=== PATIENT | female | born 1955 ===

== ENCOUNTER 2020-04-05 20:27 | Observation (INO) | payer BC, MEDICARE, SELFPAY ==
[2020-04-05 21:06] VITALS: BMI 35.9
--- NOTE | 2020-04-05 22:37 | XR_ITS ---
WS: [id number] Portable AP upright chest, 04/05/2020 Clinical Data: Chest pain Comparison: PA and lateral chest, 12/03/2017. Findings: No nodules, masses or effusions are seen. The heart is normal. The pulmonary vascularity is not increased. No pneumonia or pneumothorax is seen. The aortic arch is minimally tortuous. XR/XR chest 1V portable [id number] Impression: Atherosclerosis.
--- NOTE | 2020-04-05 22:37 | ECG_ITS ---
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 Measurements Intervals [place] Rate: 79 P: 35 HI: 174 QRS: 5 QRSD: 90 T: 5 QT: 350 QTc: 403 Interpretive Statements SINUS RHYTHM LOW QRS VOLTAGE IN PRECORDIAL LEADS [QRS DEFLECTION < 1.0 mV IN CHEST LEADS] POSSIBLE ANTERIOR MYOCARDIAL INFARCTION , PROBABLY OLD [30 ms Q WAVE IN V3/V4, OR R < 0.2 mV IN V4] Compared to ECG 06/11/2016 08:09:33 Low QRS voltage now present Myocardial infarct finding now present Sinus tachycardia no longer present Poor R-wave progression no longer present Electronically Signed On 04-06-2020 1:23:48 CDT by Jonas Pina M.D. [id number]
[2020-04-05] MEDS: aspirin 325 mg Tablet PO (23:08)
[2020-04-05] MEDS: nitroglycerin 0.4 mg sublingual Tablet SUBLINGUAL (23:16)
[2020-04-05 23:19] VITALS: BP 171/111; PULSE 90; RESP 20; O2SAT 98
--- NOTE | 2020-04-05 23:19 | W.ED.GENADLT ---
HPI - General Adult General: Chief complaint: General Medical Stated complaint: high bp Time Seen by Provider: 04/05/20 22:32 Source: patient Mode of arrival: ambulatory Limitations: no limitations History of Present Illness: HPI narrative: Tracey is a nice 64-year-old female who comes in complaining of chest pain. She states the pain started after she got out of the shower. She had associated shortness of breath. She denies any nausea vomiting or diaphoresis. The pain went across her chest, across both her shoulders and down her arms and was in between her shoulder blades. Patient states the pain is gradually subsiding but is still not completely gone. She denies any coronary artery disease history but does state that she has a history of high blood pressure. She denies any other complaints or concerns. Associated symptoms: Reports chest pain; Deny dyspnea, headache(s), nausea, rash, palpitations, syncope or vomiting Review of Systems Const: Denies: fever(s) Eyes: Denies: change in vision ENMT: Denies: throat pain Card: Reports: chest pain; Denies: palpitations, syncope, pre-syncope or dyspnea on exertion Resp: Denies: dyspnea, productive cough or non-productive cough GI: Denies: abdominal pain, nausea, vomiting or diarrhea : Denies: flank pain, dysuria, urinary frequency or urinary urgency Musc: Denies: neck pain, back pain or extremity pain Skin/Breast: Denies: rash or pruritus Neuro: Denies: headache(s), numbness in extremities, weakness in extremities or dizziness Shine/Lymph: Denies: easy bruising or easy bleeding All/Imm: Denies: urticaria PFSH ED PFSH: Medical History (Updated 04/06/20 @ 01:57 by Ai Crow) Hypertension Surgical History (Updated 04/05/20 @ 23:21 by Ai Crow) No pertinent past surgical history Family History (Updated 04/06/20 @ 01:55 by Ai Crow) Other CAD (coronary artery disease) Social History (Updated 04/05/20 @ 23:21 by Ai Crow) Smoking and tobacco status: current every day smoker Physical Exam Const: COMMON NORMALS: no acute distress, patient oriented x3, no limitations, healthy appearing and well nourished GENERAL APPEARANCE: cooperative, well kempt and well developed HENMT: COMMON NORMALS: normocephalic, atraumatic, external ears normal, EAC's normal and Normal external nose present HEAD & SCALP: normal to inspection, normocephalic and atraumatic FACE & SINUS: normal facial exam and face symmetric NOSE: Normal external nose present and Normal nares present EXTERNAL EAR: Yes external ears normal EXTERNAL AUDITORY CANAL: EAC's normal MOUTH: Normal oral and palatal mucosa present, lip normal and tongue normal Eye: COMMON NORMALS: Equal, round and reactive pupils present and conjunctivae normal GENERAL EYE: appearance normal, both eyes and all related structures ALIGNMENT: Yes alignment normal PERIORBITAL: periorbital findings normal EYELID: eyelids normal CONJUNCTIVA: Yes conjunctivae normal SCLERA: sclerae normal PUPIL: Yes Equal, round and reactive pupils present Neck/C-Spine: COMMON NORMALS: full ROM, no lymphadenopathy, supple, no meningeal signs and no JVD GENERAL: Yes normal visual inspection and Yes trachea midline Chest: COMMONS NORMALS: normal inspection of the chest and normal palpation of entire chest wall Resp: COMMON NORMALS: normal respiratory effort, No retractions and No use of accessory muscles EFFORT & INSPECTION: Yes able to speak in complete sentences and Yes symmetric chest movement AUSCULTATION: no crackles, no rales, no rhonchi and no wheezes Cardio: COMMON NORMALS: no JVD, regular rate, regular rhythm, S1 normal heart sound present and S2 normal heart sound present RATE: regular rate RHYTHM: regular rhythm HEART SOUNDS: S1 normal heart sound present, S2 normal heart sound present, no click, no gallops, no murmurs, no rubs and abnormal split S2 GI: COMMON NORMALS: Soft to palpation and No hepatosplenomegaly present PALPATION: Yes Soft to palpation, No Tenderness to palpation present (GI), No Guarding due to palpation present (GI), No Rigid due to palpation, Yes No hepatosplenomegaly present, No Hernia present, No Palpable mass present and No Pulsatile mass present : COMMON NORMALS: Yes no CVA tenderness BLADDER/KIDNEY EXAM: Yes no CVA tenderness EXTERNAL FEMALE EXAM: No Hernia present Back/Pelvis: COMMON NORMALS: no CVA tenderness, thoracic and lumbar spine normal to inspection, no thoracic nor lumbar tenderness and thoraco-lumbar ROM normal Extremity: COMMON NORMALS: normal to inspection, full ROM, capillary refill normal, no joint enlargement, no clubbing, cyanosis or edema and no calf tenderness Neuro: COMMON NORMALS: patient oriented x3, CN's II-XII intact bilaterally, moves all extremities, no focal motor deficits and no sensory deficits noted MENINGEAL SIGNS: Yes no meningeal signs SPEECH: speech normal Psych: COMMON NORMALS: mental status grossly normal, Normal thought process present, cooperative, normal affect, speech normal and activity/motor behavior normal APPEARANCE: Yes well kempt SPEECH: Yes normal speech THOUGHT PROCESS: Normal thought process present Skin: COMMON NORMALS: no rashes or lesions noted, turgor normal, no jaundice, no petechiae and no mottling GENERAL SKIN EXAM: no rashes or lesions noted and turgor normal Course Vital Signs: Vital signs: Vital Signs Temperature 97.9 F 04/06/20 02:47 Pulse Rate 84 04/06/20 02:47 Respiratory Rate 14 04/06/20 02:47 Blood Pressure 133/75 04/06/20 02:47 Pulse Oximetry 95 04/06/20 02:47 MDM - General Adult MDM Narrative: Medical decision making narrative: Case was reviewed with both Drs. Bolaños and Yovani, they agreed to admit and consult respectively. Patient has no chest pain after 1 sublingual nitroglycerin. She was given an inch of nitroglycerin paste and per Dr. Pina's direction a dose of Plavix and Lovenox. Patient agrees to stay and will be evaluated further. Dr. Pina is ordered an echo for the morning. I see no sign of aortic dissection or pulmonary embolism or acute pulmonary pathology at this time. Lab Data: Attestation: I reviewed the patient's lab results. Labs: Lab Results 04/05/20 04/06/20 04/06/20 Range/Units 21:00 00:35 00:35 WBC 8.2 (4.0-10.0) 10^3/ uL RBC 5.08 (4.1-5.3) 10^6/u L Hgb 14.5 (11.5-15.3) g/dL Hct 45.8 (37.0-47.0) % MCV 90.2 (81-99) fL MCH 28.5 (28.0-34.0) pg MCHC 31.7 (30.0-36.0) g/dL RDW 14.0 (12.1-15.1) % Plt Count 197 (130-400) 10^3/c mm MPV 10.7 H (7.4-10.4) fL Neut % (Auto) 62.4 % Lymph % (Auto) 30.0 % [place] % (Auto) 5.9 % Eos % (Auto) 0.9 % Baso % (Auto) 0.6 % Neut # (Auto) 5.12 (1.8-7.7) 10^3/u L Lymph # (Auto) 2.5 (0.8-4.8) 10^3/u L [place] # (Auto) 0.5 (0.2-0.9) 10^3/u L Eos # (Auto) 0.1 (0.0-0.8) 10^3/u L Baso # (Auto) 0.1 (0.0-0.1) 10^3/u L Nucleated RBC % (a uto) 0 % Nucleated RBCs # 0.0 /100WBC PT 12.40 (10.5-13.3) SECO NDS INR 0.90 (0.8-1.2) Sodium (136-145) mmol/L Potassium (3.5-5.1) mmol/L Chloride (98-107) mmol/L Carbon Dioxide (22-29) mmol/L Anion Gap (5-19) BUN (8-23) mg/dL Creatinine (0.5-0.9) mg/dL GFR Calculation (90-130) mL/min Glucose (65-115) mg/dL Calculated Osmolal ity (285-295) mOsm/k g Calcium (8.5-10.5) mg/dL Magnesium (1.7-2.3) mg/dL Total Bilirubin (0.15-1.2) mg/dL AST (0-32) U/L ALT (0-33) U/L Alkaline Phosphata se (35-105) IU/L Troponin T Baselin e (0-10) ng/L Total Protein (6.6-8.7) g/dL Albumin (3.5-5.2) g/dL Globulin (1.3-4.6) g/dL Lipase (13-60) U/L Urine Color Yellow (Yellow) Urine Appearance Clear (CLEAR) Urine pH 5 (5-7) Ur Specific Gravit y 1.005 (1.005-1.030) Urine Protein Neg (Negative) Urine Glucose (UA) Norm (Normal) Urine Ketones Negative (Negative) Urine Blood Neg (Negative) Urine Nitrate Negative (Negative) Urine Bilirubin Neg (NEGATIVE) Urine Urobilinogen Norm (Negative) mg/dL Ur Leukocyte Willa ase Negative (Negative) Urine RBC Rare (0-2) /hpf Urine WBC 0-4 H (0-5) /hpf Ur Squamous Epith Cells Rare (0-5) Urine Bacteria Trace (NONE) 04/06/20 04/06/20 Range/Units 00:35 00:35 WBC (4.0-10.0) 10^3/ uL RBC (4.1-5.3) 10^6/u L Hgb (11.5-15.3) g/dL Hct (37.0-47.0) % MCV (81-99) fL MCH (28.0-34.0) pg MCHC (30.0-36.0) g/dL RDW (12.1-15.1) % Plt Count (130-400) 10^3/c mm MPV (7.4-10.4) fL Neut % (Auto) % Lymph % (Auto) % [place] % (Auto) % Eos % (Auto) % Baso % (Auto) % Neut # (Auto) (1.8-7.7) 10^3/u L Lymph # (Auto) (0.8-4.8) 10^3/u L [place] # (Auto) (0.2-0.9) 10^3/u L Eos # (Auto) (0.0-0.8) 10^3/u L Baso # (Auto) (0.0-0.1) 10^3/u L Nucleated RBC % (a uto) % Nucleated RBCs # /100WBC PT (10.5-13.3) SECO NDS INR (0.8-1.2) Sodium 140 (136-145) mmol/L Potassium 4.1 (3.5-5.1) mmol/L Chloride 104 (98-107) mmol/L Carbon Dioxide 24 (22-29) mmol/L Anion Gap 16.1 (5-19) BUN 12 (8-23) mg/dL Creatinine 0.8 (0.5-0.9) mg/dL GFR Calculation 71.8 L (90-130) mL/min Glucose 122 H (65-115) mg/dL Calculated Osmolal ity 287 (285-295) mOsm/k g Calcium 9.0 (8.5-10.5) mg/dL Magnesium 2.0 (1.7-2.3) mg/dL Total Bilirubin 0.3 (0.15-1.2) mg/dL AST 30 (0-32) U/L ALT 34 H (0-33) U/L Alkaline Phosphata se 69 (35-105) IU/L Troponin T Baselin e 175 H* (0-10) ng/L Total Protein 7.1 (6.6-8.7) g/dL Albumin 4.3 (3.5-5.2) g/dL Globulin 2.8 (1.3-4.6) g/dL Lipase 34 (13-60) U/L Urine Color (Yellow) Urine Appearance (CLEAR) Urine pH (5-7) Ur Specific Gravit y (1.005-1.030) Urine Protein (Negative) Urine Glucose (UA) (Normal) Urine Ketones (Negative) Urine Blood (Negative) Urine Nitrate (Negative) Urine Bilirubin (NEGATIVE) Urine Urobilinogen (Negative) mg/dL Ur Leukocyte Willa ase (Negative) Urine RBC (0-2) /hpf Urine WBC (0-5) /hpf Ur Squamous Epith Cells (0-5) Urine Bacteria (NONE) Imaging Data^: CXR: My impression: No acute cardiopulmonary findings. EKG Data^: EKG 1: Attestation: I personally reviewed and interpreted this EKG as follows: EKG interpretation date: 04/05/20 EKG interpretation time: 23:19 Interpretation: Normal sinus rhythm at 88 beats a minute, no acute ST or T wave changes, frequent PACs, EKG 2: Attestation: I personally reviewed and interpreted this EKG as follows: EKG interpretation date: 04/06/20 EKG interpretation time: 01:22 Interpretation: Normal sinus rhythm at 86 beats a minute, nonspecific ST-T wave changes. No acute findings. 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
[2020-04-05] MEDS: nitroglycerin 1 gm/inch oint Pkt 1 INCH TOPICAL (23:33)
[2020-04-06] VITALS (24 sets, daily range): BP systolic 108–140; BP diastolic 75–100; PULSE 76–108; RESP 14–22; TEMP 36.6–36.9; O2SAT 91–98
[2020-04-06 00:06] LABS: Bacteria Urine TRACE; Bilirubin Urine Neg (NEGATIVE); Blood Urine Neg (Negative); Glucose Urine UA Norm (Normal); Ketones Urine Negative (Negative); Leukocyte Esterase Urine Negative (Negative); Nitrate Urine Negative (Negative); Protein Urine Neg (Negative); RBC Urine RARE /hpf (0-2); Specific Gravity, Urine 1.005 (1.005-1.030); Squamous Epithelial Cell Urine RARE (0-5); Urine Appearance Clear (CLEAR); Urine Color Yellow (Yellow); Urobilinogen Urine Norm (Negative); WBC Urine 0-4 /hpf (0-5); pH Urine 5 (5-7)
--- NOTE | 2020-04-06 00:37 | ECG_ITS ---
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 Measurements Intervals [place] Rate: 88 P: 20 SC: 163 QRS: -37 QRSD: 88 T: 8 QT: 420 QTc: 510 Interpretive Statements SINUS RHYTHM WITH FREQUENT SUPRAVENTRICULAR PREMATURE COMPLEXES LOW QRS VOLTAGE IN PRECORDIAL LEADS [QRS DEFLECTION < 1.0 mV IN CHEST LEADS] ANTERIOR MYOCARDIAL INFARCTION , OF INDETERMINATE AGE [40+ ms Q WAVE AND/OR ST/T ABNORMALITY IN V3/V4] INFERIOR MYOCARDIAL INFARCTION , PROBABLY OLD [40+ ms Q WAVE AND/OR ST/T ABNORMALITY IN II/aVF] Compared to ECG 04/05/2020 22:57:03 No significant changes Electronically Signed On 04-06-2020 23:44:14 CDT by Jonas Pina M.D. [email or web address].[email or web address]/[id number] f
[2020-04-06 00:43] LABS: Basophils # 0.1 10^3/uL (0.0-0.1); Basophils % 0.6 %; Eosinophils # 0.1 10^3/uL (0.0-0.8); Eosinophils % 0.9 %; Hematocrit 45.8 % (37.0-47.0); Hemoglobin 14.5 g/dL (11.5-15.3); Lymphocytes # 2.5 10^3/uL (0.8-4.8); Mean Corpuscular HGB Conc 31.7 g/dL (30.0-36.0); Mean Corpuscular Hemoglobin 28.5 pg (28.0-34.0); Mean Corpuscular Volume 90.2 fL (81-99); Mean Platelet Volume 10.7 fL (7.4-10.4); Monocytes # 0.5 10^3/uL (0.2-0.9); Monocytes % 5.9 %; Neutrophils # 5.12 10^3/uL (1.8-7.7); Neutrophils % 62.4 %; Nucleated Red Blood Cells % 0 %; Platelet Count 197 10^3/cmm (130-400); Red Blood Count 5.08 10^6/uL (4.1-5.3); White Blood Count 8.2 10^3/uL (4.0-10.0)
[2020-04-06 00:52] LABS: Alanine Aminotransferase 34 U/L (0-33); Albumin Level 4.3 g/dL (3.5-5.2); Alkaline Phosphatase 69 IU/L (35-105); Anion Gap 16.1 (5-19); Aspartate Amino Transferase 30 U/L (0-32); Blood Urea Nitrogen 12 mg/dL (8-23); Carbon Dioxide 24 mmol/L (22-29); Chloride 104 mmol/L (98-107); Globulin 2.8 g/dL (1.3-4.6); Glomerular Filtration Rate 71.8 mL/min (90-130); Glucose 122 mg/dL (65-115); Lipase 34 U/L (13-60); Osmolality Calculated 287 mOsm/kg (285-295); Potassium 4.1 mmol/L (3.5-5.1); Sodium 140 mmol/L (136-145); Total Bilirubin 0.3 mg/dL (0.15-1.2); Total Protein 7.1 g/dL (6.6-8.7)
[2020-04-06 01:01] LABS: Troponin(5th) Baseline 175 ng/L (0-10)
--- NOTE | 2020-04-06 01:04 | ECG_ITS ---
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 Measurements Intervals [place] Rate: 86 P: 10 [place]: 170 QRS: -29 QRSD: 64 T: 5 QT: 351 QTc: 421 Interpretive Statements SINUS RHYTHM WITH OCCASIONAL SUPRAVENTRICULAR PREMATURE COMPLEXES and short runs of PAT LOW QRS VOLTAGE IN PRECORDIAL LEADS [QRS DEFLECTION < 1.0 mV IN CHEST LEADS] INFERIOR MYOCARDIAL INFARCTION , PROBABLY OLD [40+ ms Q WAVE AND/OR ST/T ABNORMALITY IN II/aVF] ANTEROLATERAL MYOCARDIAL INFARCTION , OF INDETERMINATE AGE [40+ ms Q WAVE IN I/aVL/V3-V6] Compared to ECG 04/05/2020 23:19:30 No significant changes Electronically Signed On 04-06-2020 1:28:01 CDT by Jonas Pina M.D. [id number]
--- NOTE | 2020-04-06 01:20 | PC.NURSE ---
Patient declines Morphine stating she hates the idea of taking medications. aware
[2020-04-06] MEDS: clopidogrel 300 mg Tablet PO (01:46)
[2020-04-06] MEDS: enoxaparin 80 mg/0.8 mL Syringe 86 MG SUBCUT (01:47)
--- NOTE | 2020-04-06 03:00 | PC.NURSE ---
Pt arrived from ED via stretcher. VSS. No c/o pain. See admission assessment.
[2020-04-06 03:18] LABS: Troponin 5 2HR 195.3 ng/L (0-10)
[2020-04-06 03:19] LABS: Troponin 5 2HR Delta 20.3 ABS# (0-10)
[2020-04-06] MEDS: sodium chloride 0.9% 1,000 ML 100 ML IV ×2 (03:20→14:38)
--- NOTE | 2020-04-06 07:00 | USCV_ITS ---
Yoly Dubois Age: 64 Gender: F : 1955 Exam Date: 04/06/2020 05:28 Ordering Phys: Ai Crow DO Technologist: Tawny Dowd [place] [facility] [place]: [place] BP: / HR: 77 Rhythm: Sinus Technical Quality: MEASUREMENTS (Male / Female) Normal Values 2D ECHO LV Diastolic Diameter PLAX 3.9 cm 4.2 - 5.9 / 3.9 - 5.3 cm LV Systolic Diameter PLAX 3.1 cm LV Chamber Size 2.9 cm IVS Diastolic Thickness 1.0 cm 0.6 - 1.0 / 0.6 - 0.9 cm IVS Systolic Thickness 1.9 cm LVPW Diastolic Thickness 1.2 cm 0.6 - 1.0 / 0.6 - 0.9 cm LVPW Systolic Thickness 2.0 cm RV Chamber Size 2.0 cm LVOT Diameter 2.0 cm LV Ejection Fraction 2D Teich 41.7 % LV Ejection Fraction MOD 2C 56.3 % LV Ejection Fraction 2C AL 56.1 % LA Diameter 3.6 cm LA Width 2.5 cm LA Height 4.3 cm RA Width 2.0 cm RA Height 3.5 cm Aorta at Sinotubular Diameter 3.0 cm M-MODE LV Diastolic Diameter MM 3.9 cm 4.2 - 5.9 / 3.9 - 5.3 cm LV Systolic Diameter MM 2.1 cm LV Ejection Fraction MM Teich 79.1 % IVS Diastolic Thickness MM 1.0 cm 0.6 - 1.0 / 0.6 - 0.9 cm IVS Systolic Thickness MM 1.2 cm LVPW Diastolic Thickness MM 1.5 cm 0.6 - 1.0 / 0.6 - 0.9 cm LVPW Systolic Thickness MM 1.8 cm RV Diastolic Diameter MM 1.8 cm Aortic Annulus Diameter 3.1 cm LA Ao Ratio MM 1.2 MV E Point Septal Separation 0.6 cm DOPPLER AV Peak Velocity 172.0 cm/s LVOT Peak Velocity 96.0 cm/s AV Area Cont Eq vti 2.3 cm squared AV Area Cont Eq pk 1.8 cm squared MV Area PHT 4.6 cm squared MV E' Velocity 10.0 cm/s Mitral E to MV E' Ratio 8.1 Mitral E to LV E' Lateral Ratio 8.9 Mitral E to LV E' Septal Ratio 7.5 TR Peak Velocity 227.8 cm/s TR Peak Gradient 20.7 mmHg TR Mean Velocity 149.9 cm/s TR Mean Gradient 10.9 mmHg TR Velocity Time Integral 59.3 cm TV Peak E Velocity 70.0 cm/s Right Atrial Pressure 3.0 mmHg Pulmonary Artery Systolic Pressu 23.8 mmHg PV Peak Velocity 65.0 cm/s RV Acceleration Time 0.1 s RV Ejection Time 0.3 s RV AcT/ET 0.3 FINDINGS Left Ventricle Mild left ventricular hypertrophy. Diffuse hypokinesia of the LV apex. Ejection fraction around 45%.Grade I/IV diastolic dysfunction (abnormal relaxation filling pattern), normal to mildly elevated filling pressures. Right Ventricle The right ventricle is normal in size and function. Right Atrium The right atrium is normal in size. Left Atrium The left atrium is normal in size. Mitral Valve Thickened mitral valve. Mild-moderate mitral valve regurgitation. Aortic Valve Thickened aortic valve. Trace aortic valve regurgitation. Tricuspid Valve Trace to mild tricuspid valve regurgitation. Pulmonic Valve Pulmonic valve not well visualized. Pericardium Normal pericardium without effusion. Aorta Normal ascending aorta dimension. CONCLUSIONS Mild left ventricular hypertrophy. Diffuse hypokinesia of the LV apex. Ejection fraction around 45%.Grade I/IV diastolic dysfunction (abnormal relaxation filling pattern), normal to mildly elevated filling pressures. Thickened mitral valve. Mild-moderate mitral valve regurgitation. Thickened aortic valve. Trace aortic valve regurgitation. Trace to mild tricuspid valve regurgitation. Estimated pulmonary artery peak systolic pressure 24 mmHg There is no pericardial effusion. There are no intracardiac masses. Compared to the previous study from 06/10/2016, the LV dysfunction is new and the mitral regurgitation is more. Dr Jonas Pina MD FAC (Electronically Signed) Final Date: 06 April 2020 09:29 S
[2020-04-06 07:11] LABS: Basophils # 0.1 10^3/uL (0.0-0.1); Basophils % 0.8 %; Eosinophils # 0.1 10^3/uL (0.0-0.8); Eosinophils % 1.2 %; Hematocrit 42.6 % (37.0-47.0); Hemoglobin 13.4 g/dL (11.5-15.3); Lymphocytes # 2.8 10^3/uL (0.8-4.8); Mean Corpuscular HGB Conc 31.5 g/dL (30.0-36.0); Mean Corpuscular Hemoglobin 28.8 pg (28.0-34.0); Mean Corpuscular Volume 91.4 fL (81-99); Mean Platelet Volume 10.7 fL (7.4-10.4); Monocytes # 0.5 10^3/uL (0.2-0.9); Monocytes % 6.1 %; Neutrophils # 3.97 10^3/uL (1.8-7.7); Neutrophils % 53.8 %; Nucleated Red Blood Cells % 0 %; Platelet Count 179 10^3/cmm (130-400); Red Blood Count 4.66 10^6/uL (4.1-5.3); Red Cell Distribution Width 14.2 % (12.1-15.1); White Blood Count 7.4 10^3/uL (4.0-10.0)
[2020-04-06 07:33] LABS: Anion Gap 15.8 (5-19); Blood Urea Nitrogen 11 mg/dL (8-23); Calcium 8.5 mg/dL (8.5-10.5); Carbon Dioxide 23 mmol/L (22-29); Chloride 105 mmol/L (98-107); Glomerular Filtration Rate 83.7 mL/min (90-130); Glucose 101 mg/dL (65-115); Osmolality Calculated 286 mOsm/kg (285-295); Potassium 3.8 mmol/L (3.5-5.1); Sodium 140 mmol/L (136-145)
--- NOTE | 2020-04-06 07:36 | P.CONIM_ITS ---
Providers/Reason For Consult Consulting Physican/Specialty*: Josue Pina MD/cardiology Reason for Consult*: Patient with elevated troponin T and chest pain Attending Physician: Keon Bolaños MD Primary Care Provider: Keon Bolaños MD History of Present Illness History of Present Illness Yoly Dubois is a 64 year old female, is admitted to the hospital through the emergency room, where she present with complaints of a prolonged episode of chest pain. She was found to have elevated troponin T. Cardiology consult is requested for further cardiac evaluation recommendations. Patient apparently has been in her baseline state of health up until 7:00 last evening when she started having chest pain. She described as a dull aching/pressure-like pain, radiating across the chest, to both shoulders, down to both arms up to the elbows and to the jaws. She had some associated shortness of breath. No palpitation, dizziness or syncopal episode. No nausea or vomiting. No other associated symptoms or radiation of pain. Intensity of the pain was 7/10. She waited for an hour or so at home. Since there was no relief, she decided to come to the hospital. In the emergency room, she was given sublingual nitro and was placed on a nitro paste. Her symptoms gradually subsided. Has not had a recurrence of chest pain since then. She was started on subcu Lovenox and Plavix. Currently she is pain-free. She has no obvious history for coronary disease, myocardial infarction or congestive heart failure. She is known to have high blood pressure and has been on medication for the last 5 years or so. Her blood pressure has been fairly under control. Her current cholesterol status is not known. She never took any medication for cholesterol. No history for diabetes, CVA or peripheral artery disease. No history for kidney disease, liver disease or bleeding disorders. Review of Systems Narrative: CONSTITUTIONAL: No fever or chills. EYES: No blurring of vision or other visual disturbances lately. ENT: No hoarseness of voice, auditory disturbances or sore throat. CARDIOVASCULAR: As mentioned above. RESPIRATORY: History of pneumonia, requiring ventilatory support few years ago. Has some intermittent reactive airway disease GASTROINTESTINAL: No hematemesis or melena. GENITOURINARY: No dysuria or hematuria. INTEGUMENTARY: No skin rashes or history of skin cancer. NEURO: No transient ischemic attacks or amaurosis. PSYCHIATRIC: No history of psychosis or major depression. HEMATOLOGIC: No bleeding disorders or significant anemia. ENDOCRINE: No history of polyuria or polydipsia. MUSCULOSKELETAL: She has chronic pain in the right foot following a fracture ALLERGY/IMMUNOLOGY: As mentioned above. Meds/Allergies Home Medications and Allergies Home Medications Medication Instructions Recorded Confirmed Last Taken Type amlodipine 2.5 mg PO DAILY 04/06/20 04/06/20 04/05/20 09:00 History cholecalciferol (vitamin D3) 25 mcg PO DAILY 04/06/20 04/06/20 04/05/20 09:00 History [Vitamin D3] lisinopril 20 mg PO BID 04/06/20 04/06/20 04/05/20 09:00 History metoprolol tartrate 100 mg PO BID 04/06/20 04/06/20 04/05/20 09:00 History pantoprazole [Protonix] 40 mg PO DAILY 04/06/20 04/06/20 04/05/20 09:00 History potassium chloride 10 meq PO DAILY 04/06/20 04/06/20 04/05/20 09:00 History tiotropium bromide [Spiriva with 1 cap INHALATION DAILY 04/06/20 04/06/20 04/05/20 09:00 History HandiHaler] Allergies Allergy/AdvReac Type Severity Reaction Status Date / Time codeine Allergy ALGY-Difficulty Verified 04/05/20 21:11 Breathing Sulfa (Sulfonamide Allergy ALGY-Hives Verified 04/05/20 21:11 Antibiotics) Current Medications Current Medications Generic Name Dose Route Start Last Admin Trade Name Freq PRN Reason Stop Dose Admin Sodium Chloride 1,000 mls @ 100 mls/hr 04/06/20 02:40 04/06/20 03:20 Sodium Chloride 0.9% IV 100 mls/hr .Q10H CHUYITA Administration PFSH Acute PFSH: Medical History (Updated 04/06/20 @ 08:49 by Jonas Pina MD) Benign essential hypertension with target blood pressure below 140/90 FH: premature coronary heart disease Hypertension Reactive airway disease Surgical History (Updated 04/05/20 @ 23:21 by Ai Crow) No pertinent past surgical history Family History (Updated 04/06/20 @ 08:59 by Jonas Pina MD) Brother CAD (coronary artery disease) Had a myocardial infarction in his 50s. Sister CAD (coronary artery disease) Had a myocardial infarction? In your 50s as well Son CAD (coronary artery disease) Had a myocardial infarction in his 30s Father CAD (coronary artery disease) of myocardial infarction? In his 60s Social History (Updated 04/05/20 @ 23:21 by Ai Crow) Smoking and tobacco status: current every day smoker Vitals/I&O/Wt Last Vital Signs Temp 98.3 F 04/06/20 05:06 Pulse 86 04/06/20 05:06 Resp 22 H 04/06/20 05:06 BP 116/77 04/06/20 05:06 Pulse Ox 93 04/06/20 05:06 04/05/20 04/06/20 04/06/20 22:59 06:59 14:59 Intake Total 50 / 50 Balance 50 / 50 Weight last 48 hrs Weight 190 lb Physical Exam Narrative: EXAM NARRATIVE: GENERAL: The patient is alert and oriented times three. Not in any acute distress. HEENT: No significant pallor, icterus or lymphadenopathy. The pupils are reactant to light. Oral cavity: There are no mucous membrane lesions. Funduscopic examination: The fundus is not visualized NECK: Trachea appears to be central. No masses noted. No JVD or thyromegaly appreciated. No carotid bruit. RESPIRATORY: Chest is symmetrical. No intercostals muscle retraction or any accessory muscle activation. There is no chest wall tenderness. Breath sounds are heard bilaterally. No rales or rhonchi heard. No evidence of any consolidation. BREASTS: Deferred. HEART: The PMI could not be palpated. No other palpable precordial events. First and second heart sounds are normal. No S3 but an S4 is present. No severe murmurs. No pericardial rub. ABDOMEN: No vessel pulsations or distention. No tenderness. No organomegaly appreciated. No abdominal bruit. Bowel sounds are normally heard. : Deferred. RECTAL: Deferred. LYMPHATIC: No lymphadenopathy noted in the neck or groin. EXTREMITIES: No edema or cyanosis. No clubbing. The pulses are symmetrical bilaterally. The radial, femoral, dorsalis pedis and the posterior tibial pulses are palpated and found to be in good volume and amplitude. MUSCULOSKELETAL: No acute joint deformities or any swelling. SKIN: There are no significant scars or skin rash noted. NEUROPSYCHIATRIC: The patient is alert and oriented x3. Appears to be in a good mood. The higher functions are grossly within normal limits. No tremors or rigidity noted. Data Labs: Other Labs: Laboratory Last Values WBC 7.4 10^3/uL (4.0- 10.0) 04/06/20 06:41 RBC 4.66 10^6/uL (4.1 -5.3) 04/06/20 06:41 Hgb 13.4 g/dL (11.5-1 5.3) 04/06/20 06:41 Hct 42.6 % (37.0-47.0 ) 04/06/20 06:41 MCV 91.4 fL (81-99) 04/06/20 06:41 MCH 28.8 pg (28.0-34. 0) 04/06/20 06:41 MCHC 31.5 g/dL (30.0-3 6.0) 04/06/20 06:41 RDW 14.2 % (12.1-15.1 ) 04/06/20 06:41 Plt Count 179 10^3/cmm (130 -400) 04/06/20 06:41 MPV 10.7 fL (7.4-10.4 ) H 04/06/20 06:41 Neut % (Auto) 53.8 % 04/06/20 06:41 Lymph % (Auto) 38.0 % 04/06/20 06:41 Weld % (Auto) 6.1 % 04/06/20 06:41 Eos % (Auto) 1.2 % 04/06/20 06:41 Baso % (Auto) 0.8 % 04/06/20 06:41 Neut # (Auto) 3.97 10^3/uL (1.8 -7.7) 04/06/20 06:41 Lymph # (Auto) 2.8 10^3/uL (0.8- 4.8) 04/06/20 06:41 Weld # (Auto) 0.5 10^3/uL (0.2- 0.9) 04/06/20 06:41 Eos # (Auto) 0.1 10^3/uL (0.0- 0.8) 04/06/20 06:41 Baso # (Auto) 0.1 10^3/uL (0.0- 0.1) 04/06/20 06:41 Nucleated RBC % (a uto) 0 % 04/06/20 06:41 Nucleated RBCs # 0.0 /100WBC 04/06/20 06:41 PT 12.40 SECONDS (10 .5-13.3) 04/06/20 00:35 INR 0.90 (0.8-1.2) 04/06/20 00:35 Sodium 140 mmol/L (136-1 45) 04/06/20 06:41 Potassium 3.8 mmol/L (3.5-5 .1) 04/06/20 06:41 Chloride 105 mmol/L (98-10 7) 04/06/20 06:41 Carbon Dioxide 23 mmol/L (22-29) 04/06/20 06:41 Anion Gap 15.8 (5-19) 04/06/20 06:41 BUN 11 mg/dL (8-23) 04/06/20 06:41 Creatinine 0.7 mg/dL (0.5-0. 9) 04/06/20 06:41 GFR Calculation 83.7 mL/min (90-1 30) L 04/06/20 06:41 Glucose 101 mg/dL (65-115 ) 04/06/20 06:41 Calculated Osmolal ity 286 mOsm/kg (285- 295) 04/06/20 06:41 Calcium 8.5 mg/dL (8.5-10 .5) 04/06/20 06:41 Magnesium 2.0 mg/dL (1.7-2. 3) 04/06/20 00:35 Total Bilirubin 0.3 mg/dL (0.15-1 .2) 04/06/20 00:35 AST 30 U/L (0-32) 04/06/20 00:35 ALT 34 U/L (0-33) H 04/06/20 00:35 Alkaline Phosphata se 69 IU/L (35-105) 04/06/20 00:35 Troponin T Baselin e 175 ng/L (0-10) H* 04/06/20 00:35 Troponin T 120 Min andre 195.3 ng/L (0-10) H 04/06/20 02:35 Delta Troponin T 20.3 ABS# (0-10) H* 04/06/20 02:35 Total Protein 7.1 g/dL (6.6-8.7 ) 04/06/20 00:35 Albumin 4.3 g/dL (3.5-5.2 ) 04/06/20 00:35 Globulin 2.8 g/dL (1.3-4.6 ) 04/06/20 00:35 Lipase 34 U/L (13-60) 04/06/20 00:35 Urine Color Yellow (Yellow) 04/05/20 21:00 Urine Appearance Clear (CLEAR) 04/05/20 21:00 Urine pH 5 (5-7) 04/05/20 21:00 Ur Specific Gravit y 1.005 (1.005-1.0 30) 04/05/20 21:00 Urine Protein Neg (Negative) 04/05/20 21:00 Urine Glucose (UA) Norm (Normal) 04/05/20 21:00 Urine Ketones Negative (Negati ve) 04/05/20 21:00 Urine Blood Neg (Negative) 04/05/20 21:00 Urine Nitrate Negative (Negati ve) 04/05/20 21:00 Urine Bilirubin Neg (NEGATIVE) 04/05/20 21:00 Urine Urobilinogen Norm mg/dL (Negat afua) 04/05/20 21:00 Ur Leukocyte Willa ase Negative (Negati ve) 04/05/20 21:00 Urine RBC Rare /hpf (0-2) 04/05/20 21:00 Urine WBC 0-4 /hpf (0-5) H 04/05/20 21:00 Ur Squamous Epith Cells Rare (0-5) 04/05/20 21:00 Urine Bacteria Trace (NONE) 04/05/20 21:00 Imaging^: Echo: My impression: The echocardiogram done today revealed mild left ventricular hypertrophy. Diffuse hypokinesia of the LV apex. Ejection fraction around 45%.Grade I/IV diastolic dysfunction (abnormal relaxation filling pattern), normal to mildly elevated filling pressures. Thickened mitral valve. Mild-moderate mitral valve regurgitation. Thickened aortic valve. Trace aortic valve regurgitation. Trace to mild tricuspid valve regurgitation. Estimated pulmonary artery peak systolic pressure 24 mmHg There is no pericardial effusion. There are no intracardiac masses. Compared to the previous study from 06/10/2016, the LV dysfunction is new and the mitral regurgitation is more. EKG^: EKG 1: My Interpretation: The EKG revealing normal sinus rhythm with poor R wave progression. 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 Features of possible old inferior wall infarction. Nonspecific ST changes in the high lateral leads. A&P Assessment and plan (1) Non-ST elevation NE (NSTEMI): The patient's clinical features are consistent with a non-ST elevation myocardial infarction. Currently she is asymptomatic. Hemodynamically she is stable. The EKG changes are nonspecific. For the time being, patient may be kept on the Lovenox, aspirin, Plavix. She also may be started on Lipitor 80 mg now and daily. I may start her on a very low-dose of beta-pramod as well. Status: Acute (2) Benign essential hypertension with target blood pressure below 140/90: Currently the patient is normotensive. Status: Acute (3) Reactive airway disease: Patient was admitted to this hospital few years ago with a pneumonia complicated with respiratory failure. She was on a ventilator for few days. Since then, she has been using the inhaler on a as needed basis. Status: Acute Qualifiers: Asthma complication type: uncomplicated Asthma persistence: intermittent Asthma severity: mild Qualified Code(s): J45.20 - Mild intermittent asthma, uncomplicated (4) FH: premature coronary heart disease: This patient has a strong family history of for premature atherosclerotic heart disease. Her son had a myocardial infarction in his 30s. And her brother and sister also are known to have heart disease and had PCI's. Details are not available. Status: Acute Additional A&P Information In view of the patient's clinical presentation and the risk factors including strong family history for premature atherosclerotic heart disease, for further evaluation of her coronary status, an early cardiac catheterization would be appropriate. The risk of bleeding, hematoma, vascular injury, myocardial infarction, CVA, renal failure and other concomitant complications were explained in detail. Patient understood this well and consented to proceed. We may go ahead and schedule for the cardiac catheterization as early as possible. Based on the angiogram findings, further recommendations will be made Coding Level of Care Code Acute Crisis Intervention Specialist for [facility] Fwd Diagnoses Non-ST elevation NE (NSTEMI) I21.4 Benign essential hypertension with target blood pressure below 140/90 I10 Reactive airway disease J45.20 Asthma complication type: uncomplicated Asthma persistence: intermittent Asthma severity: mild FH: premature coronary heart disease Z82.49
--- NOTE | 2020-04-06 08:23 | ECG_ITS ---
[facility] Test Date: 2020-04-06 Pat Name: Yoly Dubois Department: Room: 107 Gender: Female Rf Manager: : [id number] Requested By: Ai Cueva Order Number: [id number] Marty MD: Jonas Pina M.D. Measurements Intervals [place] Rate: 81 P: 15 [place]: 167 QRS: -28 QRSD: 65 T: 5 QT: 425 QTc: 494 Interpretive Statements SINUS RHYTHM WITH FREQUENT SUPRAVENTRICULAR PREMATURE COMPLEXES LOW QRS VOLTAGE IN PRECORDIAL LEADS [QRS DEFLECTION < 1.0 mV IN CHEST LEADS] POSSIBLE ANTERIOR MYOCARDIAL INFARCTION [30 ms Q WAVE IN V3/V4, OR R < 0.2 mV IN V4], OF INDETERMINATE AGE INFERIOR MYOCARDIAL INFARCTION [40+ ms Q WAVE AND/OR ST/T ABNORMALITY IN II/aVF], PROBABLY OLD Compared to ECG 04/06/2020 01:22:48 No significant changes Electronically Signed On 04-06-2020 23:47:11 CDT by Jonas Pina M.D. [id number]
[2020-04-06 10:01] LABS: Chol HDL Ratio 6.52 mg/dL (0.0-4.40); Cholesterol 163 mg/dL (0-200); HDL Cholesterol 25 mg/dL (60-100); LDL Cholesterol Calculated 108 mg/dL (50-129); LDL HDL Ratio 4.32 RATIO (0.00-3.22); Triglycerides 148 mg/dL (0-150)
--- NOTE | 2020-04-06 10:02 | PC.CHAP ---
Pastoral Care Encounter/Spiritual Assessment Type of Contact [] Declined kettle worker visit [] Patient/Family/Request visit [] Outpatient visit [] Follow-up visit [] Physician referral [] Code/Alert [x] Routine visit [] Staff referral [] Actively dying [] Patient sleeping [] Family support [] [] Out of room [] Palliative care [] [] Receiving care in room [] Pre-surgical visit [] Trauma [] Long length of stay [] ICU visit [] Other: Relational/Emotional Strength [] Patient feels connected with others/family/visitors/staff [] Distress [] Loneliness/isolation [] Abandonment Spirituality of Patient [] Person of [place] [] Attends Confucianist of their [place] [] Believes in Prayer [] Reads Bible or Mandaeism materials [] There are Spiritual issues to be addressed Business Process Analyst Interventions [x] Prayer [x] Active listening [x] Non-anxious presence [x] Spiritual/emotional support [] Crisis/trauma care [] Spiritual counseling [] Bereavement support [] Provided bereavement packet [] Provided Bible/devotional materials [] Provided toy/stuffed animal, coloring book to patient or family member [] Provided Communion [] Anointing/Shepherd [] Salvation [x] Completed spiritual assessment [] Other: Impact on Illness or Injury [] Angry [] Fearful [] Anxious [] Often cries [] Exhaustion [] Unable to work [] Unable to attend sabianism [] Unable to walk/stand [] Unable to read [] Unable to drive [] Unable to eat/drink [] Unable to sleep [] Unable to be with family [] Patient intubated [] Other: Summary Patient resting well. Time spent with patient 5 min
[2020-04-06] MEDS: diphenhydrAMINE 50 mg Capsule PO (11:23)
[2020-04-06] MEDS: atorvastatin 40 mg Tablet 80 MG PO (11:23)
--- NOTE | 2020-04-06 11:43 | PC.RESP ---
Smoking Cessation and Pulmonary Rehab information sent to patient.
--- NOTE | 2020-04-06 12:00 | XACV_ITS ---
Exam Room: [facility] Ht: 155 cm Wt: 86 kg BSA: 1.97 m2 Gender: Female : 1955 Any Known Allergies: Sulfa Exam Priority: Routine Procedure(s): Procedure Description: Diagnostic procedure Procedure Description: PCI procedure Procedure Description: Left Heart Catheterization Procedure Description: Left ventriculography Procedure Description: Drug Eluting Coronary Stent Procedure Description: PTCA Procedure Description: Miscellaneous Procedure Description: ACT Procedure Description: Coronary Angiography Diagnostic Cath Status: Urgent Diagnostic Findings The left main is a medium caliber vessel with some minimal intimal varices in the distal segment. No significant stenotic lesions were noted. The left circumflex artery is a medium caliber ectatic vessel which was found to have around 60 to 70% narrowing in the midsegment. No other significant stenotic lesions. The left anterior descending artery is a medium caliber vessel which appears to wrap around the LV apex. The proximal LAD was found to have a tapering narrowing of around 50% towards the first septal cutting machine operator. Right after the septal cutting machine operator, the mid LAD was found to have diffuse disease. There was a high-grade lesion of around 98% at the proximal part of the mid LAD. Right after the second diagonal branch, there was another 60 to 70% lesion in the LAD. The distal LAD was found to have minimal intimal irregularities. The right coronary artery is a medium caliber dominant vessel which was found to have 20 to 30% diffuse irregular narrowing in the proximal segment. Minimal intimal irregularities were noted in the distal artery and its branches. No other significant stenotic lesions were noted. PCI Status: Urgent PCI Indication: NSTE - ACS Interventional Findings Successful PCI to proximal and mid LAD. Lesion was treated with 2 drug-eluting stent MDT Bren 2.5 15 mm distally and 3.0x18 mm proximally posted at high BREANA. These stents were then postdilated with noncompliant Euphora 3.0 x 15 mm balloon inflated at 12 BREANA Excellent angiographic result with POWER-3 flow was achieved. . Conclusions This is a 64-year-old white female with history of hypertension and a strong family history for premature atherosclerotic heart disease, is presenting with a prolonged episode of chest pain. She was found to have features of non-ST elevation myocardial infarction. Her echocardiogram revealed hypokinetic apical segments with a dimensional ejection fraction of around 45%. In view of the patient's multiple risk factors and the abnormal EGD findings, in order to further evaluate her coronary status, a cardiac catheterization was recommended. Patient underwent left heart catheterization with a left and right coronary angiogram and LV angiogram today. The findings are as follows. High-grade, around 98% lesion in the mid LAD; 60 to 70% lesion in the mid to distal left artery descending artery. Around 60% lesion in the mid circumflex artery. Mild diffuse disease in the other vessels. The LV gram revealing severe diffuse hypokinesia of the LV apex with ejection fraction around 40%. LVEDP of 19 mmHg. I discussed and reviewed the cardiac catheterization data with Dr. Kirk. It was thought to be appropriate to consider PCI of the LAD lesions. Dr. Kirk took over further management of this patient at this point. Proximal Left Anterior Descending Coronary Artery was treated with Drug Eluting Stent. Mid Left Anterior Descending Coronary Artery was treated with Drug Eluting Stent and Balloon. Recommendations 1-Return to inpatient for close monitoring and routine cath care 2-Risk factor modification for secondary prevention 3-Statin and aspirin 81 mg life--long, if tolerated 4-Patient was pre-loaded with 300 mg of Plavix, continue Plavix 75mg p.o. daily for at least one year. We will assess at the end of one year again to continue if further or not 5-Continue optimal medical management 6-Follow up with Dr. Pina in four weeks and your primary care in 10 days . Diagnostic RX Recommendation: PCI w/o planned CABG Ejection Fraction: 40.0 % LV EDP: 19 mmHg Left Ventriculography Findings: LV gram was performed the SAMANIEGO position. There was severe hypokinesia of the mid and apical anterior and apical inferior wall segments. No filling defects are noted. Overall LV ejection fraction was around 40%. No significant mitral valve prolapse or mitral regurgitation. Pressures Phase:Rest AO : 133 mmHg / 103 mmHg ( 119 mmHg ) @ 7:27:00 AM 131 mmHg / 104 mmHg ( 117 mmHg ) @ 7:29:00 AM 149 mmHg / 83 mmHg ( 111 mmHg ) @ 7:44:00 AM 151 mmHg / 81 mmHg ( 111 mmHg ) @ 7:44:00 AM 135 mmHg / 82 mmHg ( 107 mmHg ) @ 8:00:00 AM 158 mmHg / 103 mmHg ( 127 mmHg ) @ 8:13:00 AM 181 mmHg / 119 mmHg ( 148 mmHg ) @ 8:18:00 AM 160 mmHg / 121 mmHg ( 139 mmHg ) @ 8:24:00 AM 159 mmHg / 111 mmHg ( 136 mmHg ) @ 8:27:00 AM LV : 140 mmHg / 0 mmHg / @ 7:43:00 AM 151 mmHg / -11 mmHg / @ 7:44:00 AM 150 mmHg / -11 mmHg / @ 7:44:00 AM Valves Phase:DefaultPhase AV : 0.0 mmHg @ 1:42:00 PM AV Mean Gradient: 0.0 mmHg @ 1:42:00 PM Clinical Evaluation EBL: 5mL-10mL Procedural Details Procedure Consent Obtained. Pre-Procedure Time Out. Identified patient by full name and date of as verbalized by the patient/guarantor. Does the consent match the physician's order: Yes. Accurate & Complete Informed Consent: Yes. Inpatient/Outpatient History & Physical on Chart: Yes. If H&P is completed, is and addenduem needed: No; If yes, is the addendum complete: N/A. Visualize and Verify Site with Patient/Guarantor: N/A. Relevant Radiology Images available: N/A. Pre-op teaching completed and patient verbalized understanding. The risks, benefits, and alternatives of sedation and/or procedure were discussed by physician. The patient agrees to continue. Procedure started. Correct patient, site and procedure confirmed by cath team. PERRLA. Strong, equal hand paraffin plant operator bilaterally. Lungs clear x 5 lobes. IV Site on Arrival: 20 gauge in the right anticubital. IV Fluids: 0.9% NaCl at KVO. 0 mL infused prior to chemistry laboratory technician. Pre Procedural Pulses: bilateral radial was 1+. Physician arrived. Oxygen started at 2liters/min via nasal canula. right radial was prepped with chloroprep then draped in the usual sterile fashion. bilateral groins was prepped with chloroprep then draped in the usual sterile fashion. Baseline sample Acquired. HR: 108 BPM. Equipment: 6F - Radial. Cardiac Cath Pack. ACIST Manifold Kit Model BT 2000. Heparinized Saline (2 units/mL), 1000 mL bag. [facility] Clinical Fraility Score: 4: Vulnerable. Lightning Rod Installer Indications: ACS > 24 hours. Chest Pain Symptom Assessment: Typical Angina Symptoms. Cardiovascular Instability: No. Physician scrubbed in. Immediate Pre-Procedure Time Out. Correct Patient: Yes; Correct Procedure: Yes; Correct Site: Yes; Correct Patient Position: Yes; Correct Supplies: Yes; Dried Flammable Prep: Yes; Blood Products Available: N/A;. Lidocaine 1% infiltrated to the right radial. Arterial access obtained. A 5 macanese Félix catheter in over wire. Multiple views taken of left coronary artery. Called Dr Kirk to come view films. Catheter removed over the exchange wire. A 5 macanese JR4 catheter in over wire. A 5 macanese AR MOD catheter in over wire. Multiple views taken of right coronary artery. A 5 macanese Angled Pig catheter in over wire. EDP Sample taken: LV 140/0,19; HR: 96 BPM; SpO2: Off%. LV gram performed in SAMANIEGO @ 10 mL/second for a total of 30 mL. EDP Sample taken: LV 151/-12,28; HR: 89 BPM; SpO2: 97%. Pullback taken: LV 150/-12,30; AO 149/83(111); Mean: 0mmHg, Peak to Peak: 0mmHg, SEP: 11sec/min; HR: 104 BPM; SpO2: 97%. Dr Kirk arrived to view films. Sheath flushed periodically to maintain patency. Dr Kirk and Dr Pina called patient's son to give update. Dr. Kirk scrubbed in to perform intervention. Inventory is Nanali Genoa XT .014 190cm Str. Guidewire. 6 macanese XB 3.5 SH guide catheter was inserted over the wire. ACT drawn. Results 190 seconds. Therapeutic limits - pre-heparin administration 90-150 seconds and monitoring heparin during a vascular procedure >250 seconds. Guide catheter out. 6 macanese XB 3 SH guide catheter was inserted over the wire. Genoa guidewire was advanced through the guide catheter to lesion in the prox LAD. Wire out. Inventory is CRD 6FR JL 3.5 SH GUIDE. 6 macanese JL 3.5 SH guide catheter was inserted over the wire. Genoa guidewire was advanced through the guide catheter to lesion in the mid LAD. Inflation Number : 1 A MDT R BREN 2.5X15 VAZQUEZ -Lot Number# [id number] exp date 11/13/2021 was prepped and advanced across the Mid LAD. The stent was deployed at 14 BREANA for 0:15 seconds. Inflation number: 1 The stent balloon was then re-inflated across the Prox LAD to 16 BREANA for 0:08 seconds. Stent balloon out over wire. Inflation Number : 2 A MDT R BREN 3.0X18 VAZQUEZ -Lot Number# [id number] exp date 10/13/2021 was prepped and advanced across the Prox LAD. The stent was deployed at 12 BREANA for 0:15 seconds. Inflation number : 2 A MDT NC EUPHORA RX [id number] BALLOON was prepped and advanced across the Mid LAD , then inflated to 12 BREANA for 0:11 seconds. Inflation number: 3 The MDT NC EUPHORA RX [id number] BALLOON was reinflated across the Mid LAD, to 12 BREANA for 0:09 seconds. Balloon out. Results checked. ACT drawn. Results 224 seconds. Therapeutic limits - pre-heparin administration 90-150 seconds and monitoring heparin during a vascular procedure >250 seconds. Physician scrubbed out. A TR Band was successful obtaining hemostatsis at the Right Radial artery insertion site. TR band placed. Hemostasis obtained. Post Procedure: Pulses reassessed and unchanged. PERRLA. Strong, equal hand paraffin plant operator bilaterally. No VTE prophylaxis required. Dr Kirk called pt son to give update. Medication's Wasted: Lidocaine 1% = 18 mL. Medication's Wasted: Nitro = 49.8 mg. Medication's Wasted: Heparin = 2000 units. Total IV fluids: 121 mL. Contrast type used: Omnipaque 300 mgI/mL, 500 mL bottle. PCI Indication: NSTE. Post-op diagnosis: NSTEMI. Complications: none. Estimated blood loss: 5mL-10mL. Procedure completed. Patient transferred by wheelchair to 1st floor. Vital chart was stopped. Site: Right Radial artery Sheath Size: 6 Fr Hemostasis Method: TR Band Hemostasis Success: Successful Procedure Medications Start: 12:06 PM Stop: 12:06 PM Medication: Versed Amount: 1 mg Route: I.V. Start: 12:06 PM Stop: 12:06 PM Medication: Fentanyl Amount: 50 mcg Route: I.V. Start: 12:19 PM Stop: 12:19 PM Medication: Versed Amount: 1 mg Route: I.V. Start: 12:19 PM Stop: 12:19 PM Medication: Fentanyl Amount: 50 mcg Route: I.V. Start: 12:23 PM Stop: 12:23 PM Medication: Verapamil Amount: 5 mg Route: I.A. Start: 12:23 PM Stop: 12:23 PM Medication: Nitrogylcerin Amount: 200 mcg Route: I.A. Start: 12:26 PM Stop: 12:26 PM Medication: Heparin Amount: 5000 units Route: I.V. Start: 12:54 PM Stop: 12:54 PM Medication: Versed Amount: 1 mg Route: I.V. Start: 12:54 PM Stop: 12:54 PM Medication: Fentanyl Amount: 50 mcg Route: I.V. Start: 1:05 PM Stop: 1:05 PM Medication: Heparin Amount: 2000 units Route: I.V. Start: 1:16 PM Stop: 1:16 PM Medication: Versed Amount: 1 mg Route: I.V. Start: 1:16 PM Stop: 1:16 PM Medication: Fentanyl Amount: 50 mcg Route: I.V. Start: 1:23 PM Stop: 1:23 PM Medication: Heparin Amount: 1000 units Route: I.V. I, the attending physician, have reviewed and verified all procedure medications. Yes, all medications given per verbal order History/Risk Factors Hypertension: Yes Dyslipidemia: No Peripheral Arterial Disease (PAD): No Myocardial Infarction (ID): No Obesity: No Renal Disease: No Tobacco Use: Current/Recent(w/in 1 year) Prior Interventions PCI: No CABG: No Valve Surgery: No Report Signatures Interventional Workflow - Finalized by: Thao Kirk MD on 04/19/2020 2:35:38 AM Diagnostic Workflow - Finalized by:Dr Jonas Pina MD [facility] on 04/06/2020 4:58:38 PM
--- NOTE | 2020-04-06 12:05 | W.PM.OPSUD ---
Surgery/Procedure H&P Update DATE OF PROCEDURE: April 06, 2020 DATE H&P PERFORMED: 04/06/20 H&P UPDATE INFORMATION: I have reviewed H&P completed within last 30 days and I have examined patient prior to procedure PREOP DIAGNOSIS: Non-ST elevation myocardial infarction PLANNED PROCEDURE: Operation Date: 04/06/20 12:00 Proposed Procedures p Cardiac Catheterization chest pain(Left) - Jonas Pina MD PATIENT REASSESSED PRIOR TO SEDATION, WITH NO CHANGE NOTED: Yes PHYSICAL EXAM: alert, oriented x 3, clear to auscultation bilaterally and regular rate & rhythm AIRWAY EVAL/ANESTHESIA PLAN: normal airway, ASA III, Risks, benefits & alternatives of sedation and/or procedure discussed and Patient agrees to continue as planned
--- NOTE | 2020-04-06 14:14 | PC.NURSE ---
patient back from barrel charrer helper bedside report given by Sd MARIE TR band to Right radial clean dry with no hematoma noted
--- NOTE | 2020-04-06 15:14 | P.HP_ITS ---
Providers/Chief Complaint Admitting Physician: Keon Bolaños MD Primary Care Provider: Keon Bolaños MD Chief Complaint: high bp History of Present Illness Yoly Dubois is a 64 year old female with past medical history of hypertension, bilateral pneumonia in May 2016 with prolonged ambulation, COPD who presented to the emergency department with acute onset chest pain. The patient had been feeling more fatigued over the last couple weeks and thought it was due to stress due to home situations, however on the evening of 04/05/2020, she began to have more pain and funny feeling across her upper chest that moved into her bilateral shoulders and into her jaw. The patient denies any nausea or sweatiness. In the ER the patient was found to have an elevated troponin that was consistent with NSTEMI. The patient denies any constipation, diarrhea. She admits to some mild dysuria. Medications/Allergies Home Medications Medication Instructions Recorded Confirmed Last Taken Type amlodipine 2.5 mg PO DAILY 04/06/20 04/06/20 04/05/20 09:00 History cholecalciferol (vitamin D3) 25 mcg PO DAILY 04/06/20 04/06/20 04/05/20 09:00 History [Vitamin D3] lisinopril 20 mg PO BID 04/06/20 04/06/20 04/05/20 09:00 History metoprolol tartrate 100 mg PO BID 04/06/20 04/06/20 04/05/20 09:00 History pantoprazole [Protonix] 40 mg PO DAILY 04/06/20 04/06/20 04/05/20 09:00 History potassium chloride 10 meq PO DAILY 04/06/20 04/06/20 04/05/20 09:00 History tiotropium bromide [Spiriva with 1 cap INHALATION DAILY 04/06/20 04/06/20 04/05/20 09:00 History HandiHaler] Allergies Allergy/AdvReac Type Severity Reaction Status Date / Time codeine Allergy ALGY-Difficulty Verified 04/05/20 21:11 Breathing Sulfa (Sulfonamide Allergy ALGY-Hives Verified 04/05/20 21:11 Antibiotics) PFSH Acute 2 PFSH: Medical History (Updated 04/06/20 @ 15:18 by Keon Bolaños MD) Benign essential hypertension with target blood pressure below 140/90 Bilateral pneumonia COPD (chronic obstructive pulmonary disease) FH: premature coronary heart disease Hypertension Osteopenia Reactive airway disease Surgical History No pertinent past surgical history Family History Brother CAD (coronary artery disease) Had a myocardial infarction in his 50s. Sister CAD (coronary artery disease) Had a myocardial infarction? In your 50s as well Son CAD (coronary artery disease) Had a myocardial infarction in his 30s Father CAD (coronary artery disease) of myocardial infarction? In his 60s Social History Smoking and tobacco status: current every day smoker Vitals/I&O/Wt Last Vital Signs Temp 98.3 F 04/06/20 05:06 Pulse 87 04/06/20 14:26 Resp 18 04/06/20 08:00 BP 130/94 04/06/20 14:26 Pulse Ox 93 04/06/20 08:00 04/06/20 04/06/20 04/06/20 06:59 14:59 22:59 Intake Total 50 / 50 1000 / 1000 Balance 50 / 50 1000 / 1000 Weight last 48 hrs Weight 190 lb Physical Exam Narrative: EXAM NARRATIVE: General: Alert and oriented x3 Eyes: PERRLA, EOMI Mouth: Mucous membranes are moist Cardiac: Mild tachycardia with regular rhythm, no murmurs Lungs: Clear to auscultation without significant crackles, wheezes or rhonchi. Abdomen: Soft, nontender without masses appreciated. Extremities: Trace edema bilateral lower extremities. Data : 04/06/20 06:41 04/06/20 06:41 A&P Assessment and plan (1) Non-ST elevation [place] (NSTEMI): Status: Acute (2) Hypertension: Status: Acute (3) FH: premature coronary heart disease: Status: Acute Additional A&P Information 1. NSTEMI -the patient had a NSTEMI and was taken to cardiac catheterization and found to have lesions in her LAD and circumflex. 2 stents were placed successfully. Please see cardiology notes for full details of location. The patient is currently chest pain-free. She is showing signs of improvement. She will likely be able to be discharged home tomorrow if she continues to improve well after stent placement. 2. Hypertension - Blood pressure stable at this time. Continue with current home medications. 3. Prophylaxis -Heparin and Plavix. Attestations Medical Necessity Statement*: The patient's care will cross 2 midnights secondary to the above issues. Continue with current management and discharge based on cardiology's recommendations. Coding Level of Care Code Acute Saddle And Side Wire Stitcher for g Fwd Diagnoses Non-ST elevation OH (NSTEMI) I21.4 Hypertension I10 FH: premature coronary heart disease Z82.49
[2020-04-07] MEDS: sodium chloride 0.9% 1,000 ML 100 ML IV (00:48)
[2020-04-07 04:00] VITALS: BP 141/85; PULSE 97; RESP 22; TEMP 36.6; O2SAT 92
--- NOTE | 2020-04-07 08:55 | PM.DCS ---
Discharge Providers Date of Admission: 04/06/20 01:42 Date of Discharge: April 07, 2020 Attending Provider at Admission: Keon Bolaños MD Attending Provider at Discharge: Natalie Hernandez MD Consults: Cardiology Primary Care Provider: Keon Bolaños MD Diagnoses at Discharge Discharge Diagnosis (1) Non-ST elevation [place] (NSTEMI): Status: Acute Problem details: -presented with acute chest pain, found to have elevated troponins with noted significant delta -no acute ischemic changes on serial ECGs, telemetry -telemetry monitoring -BP improved, HR wnl, afebrile -CXR unremarkable -Echo: EF=45%, G1DD, diffuse hypokinesia of LV apex, trace to mild RT, mild to moderate MR, trace AR -Cardiology evaluation appreciated -on ASA, statin, Plavix -s/p cath with stenting of proximal and mid LAD, also noted to have non-obstructive 60% mid-circumflex lesion (2) Hypertension: Status: Chronic Problem details: -resume oral antihypertensives -initially presented with hypertensive urgency likely secondary to NSTEMI, BP better controlled Qualifiers: Hypertension type: essential hypertension Qualified Code(s): I10 - Essential (primary) hypertension (3) FH: premature coronary heart disease: Status: Acute Other Information Additional DC diagnoses/information: -Morbid obesity: BMI-36 kg/m2 -Chronic smoker; smoking cessation encouraged -GERD; on PPI -Reactive airway disease; on Spiriva -Chronic diastolic CHF; started on low dose lasix with KCl Reason for Visit Reason for Visit: high bp Hospital Course Hospital Course: Patient was admitted to the cardiac stepdown unit and placed on telemetry monitoring. Due to finding of NSTEMI, cardiology was consulted and patient had a coronary angiogram with noted lesions in the proximal and mid LAD which were both stented, and was noted to have moderate 60% stenosis in mid circumflex. She initially presented with hypertensive urgency that has since improved and oral antihypertensive regimen has been resumed. She had an echo done as reported above. Chest x-ray was unremarkable. She has been afebrile and on room air. She is tolerating oral intake without difficulty. Cath site is appropriate with no noted hematoma. She will need follow-up with [facility] in 1 week for labs and cath site check and thereafter with Dr. Pina. She will need to follow-up with Dr. Bolaños within 1 week. She is advised to seek medical attention immediately should she have recurrent chest pain. Discharge Summary: -Patient to follow-up with Dr. Bolaños within 1 week -Patient to follow-up with Kamryn Stone at [facility] in 1 week for cath site check and labs -Patient to follow-up with Dr. Pina in 1 month Physical Exam Const: COMMON NORMALS: no acute distress, patient oriented x3 and alert GENERAL APPEARANCE: cooperative and comfortable NUTRITIONAL APPEARANCE: obese morbidly obese ORIENTATION/CONSCIOUSNESS: Yes awake HENMT: COMMON NORMALS: normocephalic, atraumatic, hearing grossly normal bilaterally and moist oral mucous membranes HEAD & SCALP: normocephalic and atraumatic Eye: COMMON NORMALS: Equal, round and reactive pupils present, EOMs intact bilaterally and conjunctivae normal CONJUNCTIVA: Yes conjunctivae normal PUPIL: Yes Equal, round and reactive pupils present Neck/C-Spine: COMMON NORMALS: full ROM GENERAL: Yes normal visual inspection and Yes trachea midline Resp: COMMON NORMALS: normal respiratory effort, No retractions, No use of accessory muscles and clear to auscultation bilaterally EFFORT & INSPECTION: Yes able to speak in complete sentences, Yes symmetric chest movement and No tachypneic AUSCULTATION: clear to auscultation bilaterally Cardio: COMMON NORMALS: regular rate, regular rhythm, S1 normal heart sound present, S2 normal heart sound present and No murmurs present (Cardio) RATE: regular rate RHYTHM: regular rhythm HEART SOUNDS: S1 normal heart sound present and S2 normal heart sound present GI: COMMON NORMALS: Normal to inspection, nondistended, normoactive bowel sounds present, Soft to palpation and non-tender PALPATION: Yes Soft to palpation Extremity: COMMON NORMALS: normal to inspection, full ROM, no clubbing, cyanosis or edema and no pedal edema NARRATIVE EXTREMITY EXAM: -R wrist: clean/dry dressing in place, no apparent hematoma Neuro: COMMON NORMALS: patient oriented x3, moves all extremities, no focal motor deficits, no sensory deficits noted and gait normal SENSORIUM/ORIENTATION: Yes alert Psych: COMMON NORMALS: mental status grossly normal, Normal thought process present, cooperative, normal affect and speech normal SPEECH: Yes normal speech THOUGHT PROCESS: Normal thought process present Skin: COMMON NORMALS: no rashes or lesions noted, no jaundice, no petechiae and no mottling GENERAL SKIN EXAM: no rashes or lesions noted Discharge Data Data Completed and Pending: Completed Studies During Hospitalization Category Date Time Status XR chest 1V estrella ble [id number] Stat Exams 04/05/20 22:37 Completed CV echo complete* [id number] Urgent Ultrasound 04/06/20 07:00 Completed Pending at discharge Category Date Time Status EXERCISE RIDER request for service Routin e Exams 04/06/20 12:00 Taken Labs from last 24 hours 04/06/20 02:35 Triglycerides 148 Cholesterol 163 LDL Cholesterol, C alc 108 HDL Cholesterol 25 L LDL/HDL Ratio 4.32 H Cholesterol/HDL Ra juan 6.52 H Vitals: Last Vital Signs Temp 98 F 04/07/20 04:00 Pulse 97 04/07/20 04:00 Resp 22 H 04/07/20 04:00 BP 141/85 04/07/20 04:00 Pulse Ox 92 04/07/20 04:00 Discharge Plan Discharge Patient Disposition: Home, Self-Care Condition: Stable Prescriptions: New aspirin 81 mg Tablet,Delayed Release (Dr/Ec) 81 mg PO DAILY 30 Days Qty: 30 RF: 0 atorvastatin 40 mg Tablet 80 mg PO BEDTIME 30 Days Qty: 60 RF: 0 clopidogrel 75 mg Tablet 75 mg PO DAILY 30 Days Qty: 30 RF: 0 Lasix 20 mg tablet 20 mg PO DAILY 30 Days Qty: 30 RF: 0 Continued lisinopril 20 mg Tablet 20 mg PO BID RF: 0 metoprolol tartrate 100 mg Tablet 100 mg PO BID RF: 0 amlodipine 2.5 mg Tablet 2.5 mg PO DAILY RF: 0 potassium chloride 10 mEq Tablet Extended Release 10 meq PO DAILY RF: 0 Protonix 40 mg Tablet,Delayed Release (Dr/Ec) 40 mg PO DAILY RF: 0 Vitamin D3 25 mcg (1,000 unit) Capsule 25 mcg PO DAILY RF: 0 Spiriva with HandiHaler 18 mcg Capsule, W/Inhalation Device 1 cap INHALATION DAILY RF: 0 Discharge Orders: Discharge Order (Routine); Ordered 04/07/20 Ordered By: Natalie Hernandez Referrals: Jonas Pina MD [Physician] - 1 month (NSTEMI follow up) Kamryn Stone FNP [Nurse Practitioner] - 1 week (Post hospital discharge follow up. NSTEMI s/p stenting x 2) Keon Bolaños MD [Primary Care Provider] - 4-7 days (Post hospital discharge follow up. ) Discharge Diet: Cardiac Discharge Activity: Increase activity as tolerated and Limit activity as instructed Patient Instructions: Left Heart Catheterization (DC), Coronary Angioplasty (DC) Activity Restrictions/Additional Instructions: Follow-up with Kamryn Stone in [address] Pina in 1 month. Discharge Attestations Time Spent in Discharge Care*: greater than 30 min Specific Discharge Activities: Specific discharge activities: educating patient, discussing with pcp/other providers, discussing with case finisher/social workers/dc planners, documenting/other paperwork and evaluating patient/reviewing data Status at Discharge: Cognitive status at discharge: cognitively intact, Behavioral status at discharge: cooperative and independent in ADL's, Functional status at discharge: independent ambulation Overall status at discharge: patient is progressing back to baseline Quality Metrics Clinical Quality Measures During this hospital stay, did patient experience: AMI Clinical Trial Participant: No Contraindication to aspirin (AMI): Aspirin given Contraindication to statin: Statin prescribed Coding Level of Care Code Acute Medical Transcription for Chg Fwd Exam Comprehensive Diagnoses Non-ST elevation [place] (NSTEMI) I21.4 Hypertension I10 Hypertension type: essential hypertension FH: premature coronary heart disease Z82.49
--- NOTE | 2020-04-07 09:56 | PC.CHAP ---
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 [] Patient/Family/Request visit [] Outpatient visit [] Follow-up visit [] Physician referral [] Code/Alert [X] Routine visit [] Staff referral [] Actively dying [] Patient sleeping [] Family support [] [] Out of room [] Palliative care [] [] Receiving care in room [] Pre-surgical visit [] Trauma [] Long length of stay [] ICU visit [] Other: Relational/Emotional Strength [] Patient feels connected with others/family/visitors/staff [] Distress [] Loneliness/isolation [] Abandonment Spirituality of Patient [] Person of [place] [] Attends Mandaen of their [place] [] Believes in Prayer [] Reads Bible or Temple materials [] There are Spiritual issues to be addressed Floral Specialist Interventions [] Prayer [] Active listening [] Non-anxious presence [] Spiritual/emotional support [] Crisis/trauma care [] Spiritual counseling [] Bereavement support [] Provided bereavement packet [] Provided Bible/devotional materials [] Provided toy/stuffed animal, coloring book to patient or family member [] Provided Communion [] Anointing/[place] [] Salvation [] Completed spiritual assessment [] Other: Impact on Illness or Injury [] Angry [] Fearful [] Anxious [] Often cries [] Exhaustion [] Unable to work [] Unable to attend jainism [] Unable to walk/stand [] Unable to read [] Unable to drive [] Unable to eat/drink [] Unable to sleep [] Unable to be with family [] Patient intubated [] Other: Summary Time spent with patient
--- NOTE | 2020-04-07 10:01 | PM.PN ---
Subjective Subjective: Interval history: Denies any complaint. Denies chest pain denies shortness of breath patient is status post PCI to proximal and mid LAD with 2 drug-eluting stents. She has non-obstructive 60% mid circumflex lesion which is medically managed Vitals/I&O/Wt Last Vital Signs Temp 98 F 04/07/20 04:00 Pulse 97 04/07/20 04:00 Resp 22 H 04/07/20 04:00 BP 141/85 04/07/20 04:00 Pulse Ox 92 04/07/20 04:00 04/06/20 04/07/20 04/07/20 22:59 06:59 14:59 Intake Total 1100 / 2100 Balance 1100 / 2100 Weight last 48 hrs Weight 190 lb Physical Exam Narrative: EXAM NARRATIVE: GENERAL: Patient is alert, awake and oriented x3. NECK: No jugular vein distension. HEENT: No cyanosis. No icterus. No pallor. HEART: Regular S1 and S2. No murmur, rub or gallop. LUNGS: Clear to auscultate bilaterally. ABDOMEN: Soft, nontender and nondistended. Positive bowel sounds. No guarding, rebound or tenderness. CENTRAL NERVOUS SYSTEM: Grossly nonfocal. EXTREMITIES: Lower extremities without edema bilaterally. Data : 04/06/20 06:41 04/06/20 06:41 A&P Assessment and plan (1) Non-ST elevation [place] (NSTEMI): Status post PCI to proximal and mid LAD for significant 90 and 75% stenosis. Patient has moderate 60% mid circumflex stenosis which is not significant and thought to be managed medically. Continue aspirin statin beta-pramod BJ inhibitor. Patient is advised to continue clopidogrel for at least 1 year after that we will review it whether to continue or not. She will be scheduled to follow-up with Kamryn Stone cardiology nurse practitioner in [address] Pina in 4 weeks. Status: Acute (2) Benign essential hypertension with target blood pressure below 140/90: Currently well controlled. Continue current regimen Status: Acute (3) Reactive airway disease: Patient was admitted to this hospital few years ago with a pneumonia complicated with respiratory failure. She was on a ventilator for few days. Since then, she has been using the inhaler on a as needed basis. Status: Acute Qualifiers: Asthma severity: mild Asthma persistence: intermittent Asthma complication type: uncomplicated Qualified Code(s): J45.20 - Mild intermittent asthma, uncomplicated (4) FH: premature coronary heart disease: This patient has a strong family history of for premature atherosclerotic heart disease. Her son had a myocardial infarction in his 30s. And her brother and sister also are known to have heart disease and had PCI's. Details are not available. Status: Acute Additional A&P Information In view of the patient's clinical presentation and the risk factors including strong family history for premature atherosclerotic heart disease, for further evaluation of her coronary status, an early cardiac catheterization would be appropriate. The risk of bleeding, hematoma, vascular injury, myocardial infarction, CVA, renal failure and other concomitant complications were explained in detail. Patient understood this well and consented to proceed. We may go ahead and schedule for the cardiac catheterization as early as possible. Based on the angiogram findings, further recommendations will be made Attestations Medical Necessity Statement*: From a cardiovascular perspective patient can be discharged home today Coding Level of Care Code Established [facility] Manager for Chg Fwd Patient Type Established History Expanded Problem Focused Exam Expanded Problem Focused Medical Decision Making Moderate Complexity Diagnoses Non-ST elevation [place] (NSTEMI) I21.4 Benign essential hypertension with target blood pressure below 140/90 I10 Reactive airway disease J45.20 Asthma severity: mild Asthma persistence: intermittent Asthma complication type: uncomplicated FH: premature coronary heart disease Z82.49
[2020-04-07 11:16] VITALS: BP 119/82; PULSE 97; RESP 24; TEMP 36.8; O2SAT 92
[2020-04-07] MEDS: lisinopril 10 mg Tablet PO (11:19)
[2020-04-07] MEDS: clopidogrel 75 mg Tablet PO (11:19)
[2020-04-07] MEDS: metoprolol tartrate 50 mg Tablet PO (11:19)
[2020-04-07] MEDS: aspirin 81 mg EC Tablet PO (11:20)
[2020-04-07] MEDS: amlodipine 5 mg Tablet 2.5 MG PO (11:20)
[2020-04-07 12:14] VITALS: BP 119/82; PULSE 97; RESP 24; TEMP 36.8; O2SAT 92
--- NOTE | 2020-04-07 13:09 | PC.NURSE ---
discharge instructions given and explained.pt verb understanding of instructions.right ac iv dc'd.pressure held x 3 min and drsg applied.pt tolerated procedure well.right wrist with drsg dry and intact.right hand is warm to touch and with brisk capillary refill.palpable radial pulse noted.sr on monitor.vss.discharged via w/c to exit.son to drive pt home
== END 2020-04-07 13:09 | disposition home or self-care (01) ==
LOC: ER 22:32 → CSU 04-06 01:53
PROVIDERS: Emergency Medicine; Internal Medicine Cardiovascular Disease; Admitting Provider Family Medicine; PCP Family Medicine; Visit Provider Family Medicine
DX: I21.4 Non-ST elevation (NSTEMI) myocardial infarction (principal); I11.0 Hypertensive heart disease with heart failure; I50.32 Chronic diastolic (congestive) heart failure; Z82.49 Family history of ischemic heart disease and other diseases of the circulatory system; J44.9 Chronic obstructive pulmonary disease, unspecified; F17.210 Nicotine dependence, cigarettes, uncomplicated; E66.01 Morbid (severe) obesity due to excess calories; Z68.36 Body mass index [BMI] 36.0-36.9, adult; K21.9 Gastro-esophageal reflux disease without esophagitis
CPT/HCPCS: 12345; 71045; 80048; 80053; 80061; 81001; 83690; 83735; 84484; 85025; 85347; 85610; 93005; 93306; 93452; 96360; 96361; 96372; 96374; 96375; 99283; 99285; C1725; C1769; C1874; C1887; C1894; C9600; G0378; J1644; J1650; J2250; J3010; J3490; J7030; Q0163; Q9967

== ENCOUNTER → 2020-04-12 14:17 | Outpatient (BNVA) | payer BC, MEDICARE, SELFPAY | PROVIDERS: PCP Family Medicine; Visit Provider Nurse Practitioner Family | DX: I25.119 Atherosclerotic heart disease of native coronary artery with unspecified angina pectoris (principal) | CPT/HCPCS: 80048 ==

== ENCOUNTER 2020-07-23 12:28 | Outpatient (CLI) | payer BC, MEDICARE, SELFPAY ==
--- NOTE | 2020-07-23 12:45 | USCV_ITS ---
Yoly Dubois Age: 64 Gender: F : 1955 Exam Date: 07/23/2020 12:32 Ordering Phys: Jonas Pina MD ([email or web address]) Technologist: Tawny Dowd [place] [facility] [place]ication: CARDIOMYOPATHY BP: 134 / 80 HR: 60 Rhythm: Sinus Technical Quality: Adequate MEASUREMENTS (Male / Female) Normal Values 2D ECHO LV Diastolic Diameter PLAX 4.0 cm 4.2 - 5.9 / 3.9 - 5.3 cm LV Systolic Diameter PLAX 2.5 cm LV Chamber Size 3.8 cm IVS Diastolic Thickness 1.4 cm 0.6 - 1.0 / 0.6 - 0.9 cm IVS Systolic Thickness 1.9 cm LVPW Diastolic Thickness 1.4 cm 0.6 - 1.0 / 0.6 - 0.9 cm LVPW Systolic Thickness 1.9 cm RV Chamber Size 2.8 cm LVOT Diameter 2.1 cm LV Ejection Fraction 2D Teich 67.1 % LV Ejection Fraction MOD 2C 63.6 % LV Ejection Fraction 2C AL 64.4 % LA Diameter 4.1 cm LA Width 2.1 cm LA Height 4.1 cm RA Width 2.0 cm RA Height 3.0 cm Aorta at Sinotubular Diameter 3.0 cm M-MODE LV Diastolic Diameter MM 4.4 cm 4.2 - 5.9 / 3.9 - 5.3 cm LV Systolic Diameter MM 2.8 cm LV Ejection Fraction MM Teich 66.7 % IVS Diastolic Thickness MM 1.3 cm 0.6 - 1.0 / 0.6 - 0.9 cm IVS Systolic Thickness MM 1.7 cm LVPW Diastolic Thickness MM 1.4 cm 0.6 - 1.0 / 0.6 - 0.9 cm LVPW Systolic Thickness MM 1.5 cm RV Diastolic Diameter MM 1.8 cm Aortic Annulus Diameter 2.9 cm LA Ao Ratio MM 1.4 MV E Point Septal Separation 0.3 cm DOPPLER AV Peak Velocity 160.0 cm/s LVOT Peak Velocity 74.0 cm/s AV Area Cont Eq vti 1.9 cm squared AV Area Cont Eq pk 1.5 cm squared MV Area PHT 5.6 cm squared Mitral E to A Ratio 1.1 MV E' Velocity 50.0 cm/s Mitral E to MV E' Ratio 11.4 Mitral E to LV E' Lateral Ratio 9.8 Mitral E to LV E' Septal Ratio 13.8 TR Peak Velocity 243.1 cm/s TR Peak Gradient 23.6 mmHg TR Mean Velocity 193.1 cm/s TR Mean Gradient 17.3 mmHg TR Velocity Time Integral 79.2 cm TV Peak E Velocity 65.0 cm/s PV Peak Velocity 51.0 cm/s RV Acceleration Time 0.2 s RV Ejection Time 0.4 s RV AcT/ET 0.5 FINDINGS Left Ventricle Normal left ventricular size and systolic function, EF 60 %. Mild left ventricular hypertrophy. Grade II/IV diastolic dysfunction, moderately elevated filling pressures. Right Ventricle The right ventricle is normal in size and function. Right Atrium The right atrium is normal in size. Left Atrium Mildly increased left atrial size. Mitral Valve Thickened mitral valve. Moderate mitral valve regurgitation. Aortic Valve Thickened aortic valve. Tricuspid Valve Trace tricuspid valve regurgitation. Pulmonic Valve Pulmonic valve not well visualized. Pericardium Normal pericardium without effusion. Aorta Normal ascending aorta dimension. CONCLUSIONS Normal left ventricular size and systolic function, EF 60 %. Mild left ventricular hypertrophy. Grade II/IV diastolic dysfunction, moderately elevated filling pressures. Thickened mitral valve. Moderate mitral valve regurgitation. Thickened aortic valve. Trace tricuspid valve regurgitation. There is no pericardial effusion. There are no intracardiac masses. Compared to the study from 04/06/2020, the LV ejection fraction has improved Dr Jonas Pina MD FAC (Electronically Signed) Final Date: 23 July 2020 21:09 S
== END 2020-07-23 12:29 | disposition home or self-care (01) ==
LOC: RAD 12:29
PROVIDERS: PCP Family Medicine; Visit Provider Internal Medicine Cardiovascular Disease
DX: I25.5 Ischemic cardiomyopathy (principal); I08.3 Combined rheumatic disorders of mitral, aortic and tricuspid valves
CPT/HCPCS: 93306

== ENCOUNTER 2021-07-30 08:35 | Emergency (ER) | payer BC, MEDICARE, SELFPAY ==
[2021-07-30 08:40] VITALS: BP 151/68; PULSE 72; RESP 18; TEMP 36.4; O2SAT 93; BMI 37.1
--- NOTE | 2021-07-30 08:52 | ED_ITS ---
HPI - Back Pain/Injury General: Chief Complaint: Back Pain/Injury Stated Complaint: Back Pain Time Seen by Provider: 07/30/21 08:40 Source: patient Mode of arrival: ambulatory Limitations: no limitations History of Present Illness: HPI Narrative: Patient is a 65-year-old female who presents to ED today with complaint of left-sided mid back/thoracic pain. Patient tells me last week she began having some discomfort after working around the house installing mony, sweeping, etc. She thought she most likely just pulled something in her back and pain had actually been improving over the past few days. She states today she was seated on the toilet and was tying her shoe when she coughed and felt immediate severe pain to the same area. Patient states she doesn't have much discomfort at rest but complains of severe pain with movement, coughing, twisting, etc. no radiation to her discomfort. She does not complain of chest pain or shortness of breath. No difficulty breathing. MD elicited complaint: back pain Onset (ago): day(s) Timing: constant Severity: severe Location: left upper back Radiation: none Exacerbating factors: movement, deep breaths and coughing/sneezing Relieving factors: immobilization Associated symptoms: Deny abdominal pain, dysuria, fever(s), hematuria or syncope Work related injury: No Review of Systems Const: Denies: fever(s) Eyes: Denies: change in vision ENMT: Denies: throat pain or odynophagia Card: Denies: chest pain, palpitations, lightheadedness or syncope Resp: Denies: dyspnea GI: Denies: abdominal pain : Denies: dysuria or hematuria Musc: Reports: back pain; Denies: neck pain, extremity pain or joint pain Skin/Breast: Denies: rash Neuro: Denies: headache(s), numbness in extremities, weakness in extremities or sensory changes PFS ED PFSH: Medical History (Updated 07/30/21 @ 10:46 by EVELIN Ernst) Benign essential HTN Benign essential hypertension with target blood pressure below 140/90 Bilateral pneumonia COPD (chronic obstructive pulmonary disease) Coronary artery disease Dyslipidemia FH: premature coronary heart disease Hypertension -resume oral antihypertensives -initially presented with hypertensive urgency likely secondary to NSTEMI, BP better controlled Ischemic cardiomyopathy Leg edema Chronic frm fracture of the left ankle Sep Non-ST elevation [place] (NSTEMI) -s/p cath with stenting of proximal and mid LAD, also noted to have non- obstructive 60% mid-circumflex lesion Osteopenia Reactive airway disease Surgical History No pertinent past surgical history Family History Brother CAD (coronary artery disease) Had a myocardial infarction in his 50s. Sister CAD (coronary artery disease) Had a myocardial infarction? In your 50s as well Son CAD (coronary artery disease) Had a myocardial infarction in his 30s Father CAD (coronary artery disease) of myocardial infarction? In his 60s Social History Smoking and tobacco status: former smoker Alcohol intake: never Physical Exam Const: COMMON NORMALS: no acute distress, patient oriented x3, no limitations and alert GENERAL APPEARANCE: cooperative NUTRITIONAL APPEARANCE: overwei ght ORIENTATION/CONSCIOUSNESS: Yes awake, Yes oriented to person, Yes oriented to place and Yes oriented to time HENMT: COMMON NORMALS: normocephalic and atraumatic HEAD & SCALP: normocephalic and atraumatic Neck/C-Spine: COMMON NORMALS: full ROM CERVICAL SPINE: No cervical ROM normal, No pain with cervical ROM and No Cervical spine tenderness Chest: OTHER: TTP L posteriolateral chest wall; no crepitus Resp: COMMON NORMALS: normal respiratory effort and clear to auscultation bilaterally AUSCULTATION: clear to auscultation bilaterally Cardio: COMMON NORMALS: regular rate and regular rhythm RATE: regular rate RHYTHM: regular rhythm GI: COMMON NORMALS: Normal to inspection, nondistended, normoactive bowel sounds present, Soft to palpation, non-tender, No hepatosplenomegaly present and no masses INSPECTION: No visible pulsation PALPATION: Yes Soft to palpation and Yes No hepatosplenomegaly present Back/Pelvis: THORACIC SPINE/UPPER BACK: No thoracic spinal tenderness, Yes paraspinal muscle tenderness and No paraspinal muscle spasm LUMBAR SPINE/LO WER BACK: Yes normal to inspection, No lumbar spinal tenderness and No paraspinal muscle tenderness PELVIS: Yes buttocks normal SACROILIAC JOINTS: Yes SI joints normal BACK IMAGE (FEMALE): 1. TTP; palpation directly reproduces patient's pain Extremity: COMMON NORMALS: normal to inspection, full ROM, capillary refill normal and no clubbing, cyanosis or edema GENERAL: Yes normal exam except as noted OTHER: pulses equal bilaterally Neuro: NICK COMA SCALE: document [facility] findings [place] coma scale eye opening: Spontaneous [place] coma scale verbal response: Orientated Nick coma scale motor response: Obey commands [place] coma scale total score: 15 COMMON NORMALS: patient oriented x3, moves all extremities, no focal motor deficits and no sensory deficits noted SENSORIUM/ORIENTATION: Yes alert, Yes oriented to person, Yes oriented to place and Yes oriented to time Skin: COMMON NORMALS: no rashes or lesions noted GENERAL SKIN EXAM: no ortiz hes or lesions noted Course ED course: Patient reports pain from a 10 to a 3/10 after IM norflex/toradol. Vital Signs: Vital signs: Vital Signs Temperature 97.5 F L 07/30/21 08:40 Pulse Rate 72 07/30/21 08:40 Respiratory Rate 18 07/30/21 08:40 Blood Pressure 151/68 07/30/21 08:40 Pulse Oximetry 93 07/30/21 08:40 MDM - Back Pain/Injury MDM Narrative: Medical decision making narrative: Patient does not complain of much discomfort at rest. Her pain has significantly improved here with muscle relaxers/NSAIDs. History and physical exam is consistent with a musculoskeletal injury most likely involving her latissimus dorsi. Will treat with muscle relaxers and steroids at home. Recommend small amount of ibuprofen and tylenol as needed for discomfort. Return to ED precautions given. Lab Data: Labs: Lab Results 07/30/21 08:48 Urine Color Yellow (Yellow) Urine Appearance Clear (CLEAR) Urine pH 6 (5-7) Ur Specific Gravit y 1.005 (1.005-1.030) Urine Protein Neg (Negative) Urine Glucose (UA) Norm (Normal) Urine Ketones Negative (Negative) Urine Blood Neg (Negative) Urine Nitrate Negative (Negative) Urine Bilirubin Neg (Negative) Urine Urobilinogen Norm mg/dL mg/dL (Negative) Ur Leukocyte Willa ase Negative (Negative) Discharge Plan Discharge Patient Disposition: Home Clinical Impression: Strain of thoracic back region Condition: Stable Prescriptions: New cyclobenzaprine 10 mg tablet 10 mg PO TID Qty: 14 RF: 0 Medrol (Earl) 4 mg tablets,dose pack See Rx Instructions .ROUTE .COMPLEX Qty: 21 RF: 0 No Action furosemide 20 mg tablet 20 mg PO DAILY RF: 0 atorvastatin 80 mg tablet 80 mg PO DAILY RF: 0 aspirin [Adult Aspirin Regimen] 81 mg tablet,delayed release (DR/EC) 81 mg PO DAILY RF: 0 amlodipine 5 mg tablet 5 mg PO DAILY Qty: 90 RF: 3 prasugrel [Effient] 10 mg tablet 10 mg PO DAILY Qty: 90 RF: 3 lisinopril 20 mg Tablet 20 mg PO BID RF: 0 metoprolol tartrate 100 mg Tablet 100 mg PO BID RF: 0 potassium chloride 10 mEq Tablet Extended Release 10 meq PO DAILY RF: 0 Protonix 40 mg Tablet,Delayed Release (Dr/Ec) 40 mg PO DAILY RF: 0 Vitamin D3 25 mcg (1,000 unit) Capsule 25 mcg PO DAILY RF: 0 Spiriva with HandiHaler 18 mcg Capsule, W/Inhalation Device 1 cap INHALATION DAILY RF: 0 Discharge Orders: Discharge ED (Routine); Ordered 07/30/21 Ordered By: Miladys Mayer Referrals: Keon Bloaños MD [Primary Care Provider] - Patient Instructions: Thoracic Back Strain (ED) Activity Restrictions/Additional Instructions: You may take the prescribed medications in addition to a small amount of OTC anti-inflammatory such as ibuprofen or naproxen. You may also take Tylenol as needed for discomfort. You need to return to the emergency department for worsening or uncontrollable back pain, severe abdominal or chest pain, dizziness/lightheadedness, or any other concerns you may have. Coding Level of Care Code ED Bearing Machine Operator for Yamileth Rodrigez Exam Comprehensive
[2021-07-30] MEDS: orphenadrine 30 mg/mL Inj 2 mL 60 MG IM (09:31)
[2021-07-30] MEDS: ketorolac 30 mg/mL INJ IM (09:31)
[2021-07-30 10:20] LABS: Add Urine Microscopic? NO; Charge for UA Resulting for Rev
[2021-07-30 10:28] LABS: Blood Urine Neg (Negative); Glucose Urine UA Norm (Normal); Ketones Urine Negative (Negative); Nitrate Urine Negative (Negative); Protein Urine Neg (Negative); Specific Gravity, Urine 1.005 (1.005-1.030); Urine Appearance Clear (CLEAR); Urine Color Yellow (Yellow); pH Urine 6 (5-7)
[2021-07-30 10:29] LABS: Bilirubin Urine Neg (Negative); Leukocyte Esterase Urine Negative (Negative); Urobilinogen Urine Norm (Negative)
== END 2021-07-30 11:31 | disposition home or self-care (01) ==
PROVIDERS: Emergency Provider Physician Assistant; PCP Family Medicine
DX: S29.012A Strain of muscle and tendon of back wall of thorax, initial encounter (principal); X50.1XXA Overexertion from prolonged static or awkward postures, initial encounter; Z79.82 Long term (current) use of aspirin; I25.10 Atherosclerotic heart disease of native coronary artery without angina pectoris; I10 Essential (primary) hypertension
CPT/HCPCS: 81003; 96372; 99283; J1885; J2360

== ENCOUNTER → 2022-03-21 08:12 | Outpatient (BNVA) | payer MEDICARE, SELFPAY | PROVIDERS: PCP Family Medicine; Visit Provider Family Medicine | DX: Z00.00 Encounter for general adult medical examination without abnormal findings (principal) | CPT/HCPCS: 80053; 80061; 83036; 85025 ==

== ENCOUNTER → 2022-09-29 13:34 | Outpatient (BNVA) | payer MEDICARE, SELFPAY | PROVIDERS: PCP Family Medicine; Visit Provider Internal Medicine Cardiovascular Disease | DX: I25.119 Atherosclerotic heart disease of native coronary artery with unspecified angina pectoris (principal); M25.50 Pain in unspecified joint; E78.5 Hyperlipidemia, unspecified; I10 Essential (primary) hypertension; I25.2 Old myocardial infarction; Z87.891 Personal history of nicotine dependence | CPT/HCPCS: 99213 ==

== ENCOUNTER → 2023-03-25 08:25 | Outpatient (BNVA) | payer MEDICARE, SELFPAY | PROVIDERS: PCP Family Medicine; Visit Provider Family Medicine | DX: M25.50 Pain in unspecified joint (principal); E78.5 Hyperlipidemia, unspecified; I10 Essential (primary) hypertension; Z79.899 Other long term (current) drug therapy | CPT/HCPCS: 80053; 80061; 83036; 85025 ==

== ENCOUNTER → 2023-04-06 14:08 | Outpatient (BNVA) | payer MEDICARE, SELFPAY | PROVIDERS: PCP Family Medicine; Visit Provider Internal Medicine Cardiovascular Disease | DX: I25.10 Atherosclerotic heart disease of native coronary artery without angina pectoris (principal); E78.5 Hyperlipidemia, unspecified; I10 Essential (primary) hypertension; R60.0 Localized edema; Z87.891 Personal history of nicotine dependence | CPT/HCPCS: 99214 ==

== ENCOUNTER 2023-04-24 12:57 | Outpatient (CLI) | payer MEDICARE, SELFPAY ==
--- NOTE | 2023-04-24 13:12 | XR_ITS ---
WS: [id number] Chest 2 views, 04/24/2023 Clinical Data: Cough Comparison: Portable chest, 04/05/2020 Findings: No nodules, masses or effusions are seen. The heart is normal. The pulmonary vascularity is not increased. No pneumonia or pneumothorax is seen. The aortic arch and descending thoracic aorta s how mild tortuosity. XR/XR chest 2V* [id number] Impression: Atherosclerosis.
== END 2023-04-24 12:58 | disposition home or self-care (01) ==
PROVIDERS: PCP Family Medicine; Visit Provider Family Medicine
DX: R05.9 Cough, unspecified (principal); I70.90 Unspecified atherosclerosis
CPT/HCPCS: 71046

== ENCOUNTER → 2024-03-21 08:25 | Outpatient (BNVA) | payer MEDICARE, SELFPAY | PROVIDERS: PCP Family Medicine; Visit Provider Family Medicine | DX: Z51.81 Encounter for therapeutic drug level monitoring (principal); Z00.00 Encounter for general adult medical examination without abnormal findings; R73.03 Prediabetes; E55.9 Vitamin D deficiency, unspecified; Z13.220 Encounter for screening for lipoid disorders; E11.9 Type 2 diabetes mellitus without complications | CPT/HCPCS: 80053; 80061; 82306; 83036; 83735; 85025 ==

== ENCOUNTER → 2024-04-06 10:00 | Outpatient (BNVA) | payer MEDICARE, SELFPAY | PROVIDERS: PCP Family Medicine; Visit Provider Internal Medicine Cardiovascular Disease | DX: I25.10 Atherosclerotic heart disease of native coronary artery without angina pectoris (principal); I10 Essential (primary) hypertension; I25.5 Ischemic cardiomyopathy; E78.5 Hyperlipidemia, unspecified; Z87.891 Personal history of nicotine dependence | CPT/HCPCS: 99214 ==

== ENCOUNTER → 2024-10-06 09:04 | Outpatient (BNVA) | payer MEDICARE, SELFPAY | PROVIDERS: PCP Family Medicine; Visit Provider Nurse Practitioner Family | DX: I25.10 Atherosclerotic heart disease of native coronary artery without angina pectoris (principal); I10 Essential (primary) hypertension; I25.5 Ischemic cardiomyopathy; E78.5 Hyperlipidemia, unspecified; Z87.891 Personal history of nicotine dependence | CPT/HCPCS: 99213 ==

== ENCOUNTER → 2025-03-22 08:00 | Outpatient (BNVA) | payer MEDICARE, SELFPAY | PROVIDERS: PCP Family Medicine; Visit Provider Family Medicine | DX: Z00.00 Encounter for general adult medical examination without abnormal findings (principal); Z51.81 Encounter for therapeutic drug level monitoring; Z13.6 Encounter for screening for cardiovascular disorders; R73.03 Prediabetes | CPT/HCPCS: 80053; 80061; 83036; 83735; 85025 ==

== ENCOUNTER → 2025-05-29 09:44 | Outpatient (BNVA) | payer MEDICARE, SELFPAY | PROVIDERS: PCP Family Medicine; Visit Provider Internal Medicine Cardiovascular Disease | DX: I11.0 Hypertensive heart disease with heart failure (principal); I50.30 Unspecified diastolic (congestive) heart failure; I25.10 Atherosclerotic heart disease of native coronary artery without angina pectoris; E78.5 Hyperlipidemia, unspecified; Z79.82 Long term (current) use of aspirin; Z95.5 Presence of coronary angioplasty implant and graft; Z87.891 Personal history of nicotine dependence; I25.2 Old myocardial infarction | CPT/HCPCS: 99214 ==